=== PATIENT | male | born 1975 | race Caucasian/White ===

== ENCOUNTER → 2017-01-07 | Outpatient (CLI) | payer BC ==
[~2017-01-07] MED LIST: CEPHALEXIN500 M1 PO; EFFEXOR XR75 MG PO
== END ==
LOC: RAD 11:41
DX: M53.3 Sacrococcygeal disorders, not elsewhere classified (principal); M54.10 Radiculopathy, site unspecified; M51.36 Other intervertebral disc degeneration, lumbar region; M51.37 Other intervertebral disc degeneration, lumbosacral region

== ENCOUNTER 2017-01-09 15:26 | Outpatient (RCR) | payer OTHER, BC ==
[2016-11-02 12:18] VITALS: BP 116/74
== END 2017-03-28 15:05 | disposition home or self-care (01) ==
LOC: PT 15:26
DX: M53.3 Sacrococcygeal disorders, not elsewhere classified (principal); M54.10 Radiculopathy, site unspecified

== ENCOUNTER → 2017-07-14 | Outpatient (CLI) | payer BC ==
[~2017-07-14] VITALS: Ht 182.9 cm; Wt 94.5 kg
[2017-07-14 15:27] VITALS: BP 158/102
[2017-07-14 15:30] VITALS: BP 143/98
[2017-07-14 16:46] VITALS: BP 154/90
== END ==
LOC: AMSURD 15:22
DX: T63.441A Toxic effect of venom of bees, accidental (unintentional), initial encounter (principal)
CPT/HCPCS: J1200; J1885; J2930; J7030

== ENCOUNTER → 2017-08-27 | Outpatient (CLI) | payer BC ==
[2017-07-14 16:46] VITALS: BP 154/90
== END ==
LOC: RAD 06:58
DX: M51.26 Other intervertebral disc displacement, lumbar region (principal); M48.06 Spinal stenosis, lumbar region; M25.78 Osteophyte, vertebrae

== ENCOUNTER → 2020-12-06 | Outpatient (CLI) | payer BC ==
[2017-07-14 16:46] VITALS: BP 154/90
== END ==
LOC: RAD 14:50
DX: M67.813 Other specified disorders of tendon, right shoulder (principal); M19.011 Primary osteoarthritis, right shoulder

== ENCOUNTER 2020-12-20 13:46 | Outpatient (RCR) | payer BC ==
[2017-07-14 16:46] VITALS: BP 154/90
== END 2021-01-29 16:30 | disposition home or self-care (01) ==
LOC: PT 13:46
DX: M67.813 Other specified disorders of tendon, right shoulder (principal)